=== PATIENT | female | born 1925 | race Caucasian/White ===

== ENCOUNTER 2017-03-05 15:17 | Inpatient (IN) | payer OTHER, MEDICARE ==
[2017-03-05 16:50] VITALS: BMI 31.2
[2017-03-05 17:39] LABS: BASOPHIL 0.6 % (0-2.0); EOSINOPHIL 0.4 % (0-4.5); MCH 28.4 pg (25.7-33.7); MCHC 31.7 g/dl (32.0-36.0); MEAN CELL VOLUME 89.5 fl (80-96); MEAN PLT VOLUME 8.4 fl (7.5-11.1); NEUTROPHILS 87.2 % (42.8-82.8); PLATELET COUNT 223 K/MM3 (134-434); RDW 14.3 % (11.6-15.6); WHITE BLOOD COUNT 15.8 K/mm3 (4.0-10.0)
[2017-03-05] MEDS: SODIUM CHLORIDE 1,000 ML IV SCH (17:46)
[2017-03-05 18:06] LABS: INR 1.03 (0.82-1.09); PROTHROMBIN TIME (PATIENT) 11.3 SEC (9.98-11.88)
[2017-03-05 18:20] LABS: ALBUMIN 3.7 g/dl (3.4-5.0); ANION GAP 9 (8-16); BILIRUBIN,TOTAL 0.3 mg/dL (0.2-1.0); CALCIUM 9.3 mg/dL (8.5-10.1); CO2 27 mmol/L (21-32); CREATININE 1.3 mg/dL (0.55-1.02); GLUCOSE,RANDOM 144 mg/dL (74-106); SGOT/AST 15 U/L (15-37); SGPT/ALT 13 U/L (12-78); TOT PROT 7.5 g/dl (6.4-8.2)
[2017-03-05 18:22] LABS: ALK PHOS 116 U/L (45-117); TROPONIN I < 0.02 ng/ml (0.00-0.05)
--- NOTE | 2017-03-05 20:02 | PDOC ---
History of Present Illness - History of Present Illness Initial Comments: 03/05/17 20:49 Patient is an 89 year old female with significant medical hx of dementia, CVA ( 6 years ago), HTN, HLD, and GERD brought in to the ED by son s/p fall. Three months ago the patient was admitted to [facility] for physical therapy and UTI. Today the patient was discharged from the correction and fell twice. The first time the patient was walking up the stairs into the house, when her knees buckled and she fell forward, scraping both of her shins on the stone steps. The patient did not hit her head or lose consciousness. The second time the patient was walking back from the bathroom when her legs collapsed and her son caught her in a wheelchair. He states that once she landed in the chair, she temporarily lost consciousness. Denies any head trauma. The patient uses a walker to ambulate. She is a poor historian. Denies nausea, vomiting, diarrhea, shortness of breath, chest pain, lightheadedness, or dizziness. Allergies: NKDA. PCP: Bola Chadwick MD <Karla Fermin - Last Filed: 03/05/17 21:04> <Melissa Thacker - Last Filed: 03/06/17 03:29> - General Chief Complaint: Syncope/Near Syncope Stated Complaint: Syncope/Near Syncope Past History <Karla Fermin - Last Filed: 03/05/17 21:04> - Past Medical History CVA: Yes (2009) COPD: Yes Dementia: Yes HTN: Yes Hypercholesterolemia: Yes - Immunization History Immunization Up to Date: Yes - Psycho/Social/Smoking Cessation Hx Suicidal Ideation: No Smoking History: Former smoker Have you smoked in the past 12 months: No Information on smoking cessation initiated: No Hx Alcohol Use: No Drug/Substance Use Hx: Yes Substance Use Type: None Hx Substance Use Treatment: No <Melissa Thacker - Last Filed: 03/06/17 03:29> - Past Medical History Allergies/Adverse Reactions: Allergies Allergy/AdvReac Type Severity Reaction Status Date / Time No Known Allergies Allergy Verified 03/05/17 16:06 Home Medications: Ambulatory Orders Escitalopram Oxalate [Lexapro -] 20 mg PO DAILY 10/26/15 Lovastatin 10 mg PO DAILY 10/26/15 Cholecalciferol (Vitamin D3) [D3-2000] 2,000 unit PO DAILY 11/07/15 Pantoprazole Sodium [Protonix] 40 mg PO DAILY 12/28/15 Amlodipine Besylate [Norvasc -] 2.5 mg PO DAILY tablet 01/02/16 Calcium (Oyster Shell) [Os-Dieter 500MG -] 500 mg PO DAILY #30 tablet 01/02/16 Lisinopril [Prinivil] 5 mg PO DAILY tablet 01/02/16 Aspirin Coated [Ecotrin -] 81 mg PO DAILY 12/23/16 Carbidopa/Levodopa 25/100 [Sinemet 25/100 -] 1 each PO TID 03/05/17 Review of Systems - Review of Systems Comments:: 03/05/17 20:50 CONSTITUTIONAL: Absent: fever, chills, diaphoresis, generalized weakness, malaise, loss of appetite HEENT: Absent: rhinorrhea, nasal congestion, throat pain, throat swelling, difficulty swallowing, mouth swelling, ear pain, eye pain, visual changes CARDIOVASCULAR: Present: syncope Absent: chest pain, palpitations, irregular heart rate, lightheadedness, peripheral edema RESPIRATORY: Absent: cough, shortness of breath, dyspnea with exertion, orthopnea, wheezing, stridor, hemoptysis GASTROINTESTINAL: Absent: abdominal pain, abdominal distension, nausea, vomiting, diarrhea, constipation, melena, hematochezia GENITOURINARY: Absent: dysuria, frequency, urgency, hesitancy, hematuria, flank pain, genital pain MUSCULOSKELETAL: Absent: myalgia, arthralgia, joint swelling SKIN: Present: españa abrasions Absent: rash, itching, pallor HEMATOLOGIC/IMMUNOLOGIC: Absent: easy bleeding, easy bruising, lymphadenopathy, frequent infections ENDOCRINE: Absent: unexplained weight gain, unexplained weight loss, heat intolerance, cold intolerance NEUROLOGIC: Absent: headache, focal weakness or paresthesia, dizziness, unsteady gait, seizure, mental status changes, bladder or bowel incontinence. PSYCHIATRIC: Absent: anxiety, depression, suicidal or homicidal ideation, hallucinations <Karla Fermin - Last Filed: 03/05/17 21:04> *Physical Exam - Vital Signs Last Vital Signs Temp Pulse Resp BP Pulse Ox 97.9 F 79 17 131/49 98 03/05/17 15:45 03/05/17 15:45 03/05/17 15:45 03/05/17 15:45 03/05/17 15:45 - Physical Exam Comments: 03/05/17 20:52 GENERAL: Well developed, well nourished. Awake and alert. No acute distress. HEENT: Normocephalic, atraumatic. PERRLA, EOMI. No conjunctival pallor. Sclera are non- icteric. Moist mucous membranes. Oropharynx is clear. NECK: Supple. Full ROM. No JVD. Carotid pulses 2+ and symmetric, without bruits. No thyromegaly. No lymphadenopathy. CARDIOVASCULAR: Regular rate and rhythm. No murmurs, rubs, or gallops. Distal pulses are 2+ and symmetric. PULMONARY: No evidence of respiratory distress. Lungs clear to auscultation bilaterally. No wheezing, rales or rhonchi. ABDOMINAL: Protuberant. Soft. Non-tender. Non-distended. No rebound or guarding. No organomegaly. Normoactive bowel sounds. MUSCULOSKELETAL: Normal range of motion at all joints. No hip tenderness. No bony deformities or tenderness. No CVA tenderness. EXTREMITIES: Scattered bruising to the lower extremities bilaterally. No cyanosis. No clubbing. No edema. No calf tenderness. SKIN: Extensive avulsive superficial abrasions to the bilateral shins measuring 10 cm. Warm and dry. Normal capillary refill. No rashes. No jaundice. NEUROLOGICAL: Alert, awake, poor historian. A&O x1 (baseline). Follows commands. Moving all extremities. Able to lift legs against gravity. Cranial nerves 2-12 intact. Normal speech. No ataxia. PSYCHIATRIC: Cooperative. Good eye contact. Appropriate mood and affect. <Karla Fermin - Last Filed: 03/05/17 21:04> - Vital Signs Last Vital Signs Temp Pulse Resp BP Pulse Ox 97.9 F 79 17 131/49 98 03/05/17 15:45 03/05/17 15:45 03/05/17 15:45 03/05/17 15:45 03/05/17 15:45 <Melissa Thacker - Last Filed: 03/06/17 03:29> ED Treatment Course - LABORATORY CBC & Chemistry Diagram: 03/05/17 17:30 03/05/17 17:30 - ADDITIONAL ORDERS Additional order review: Laboratory Results 03/05/17 03/05/17 03/05/17 17:30 17:30 17:30 INR 1.03 Sodium 140 Potassium 4.6 Chloride 104 Carbon Dioxide 27 Anion Gap 9 BUN 25 H Creatinine 1.3 H Creat Clearance w eGFR 38.57 Random Glucose 144 H D Calcium 9.3 Total Bilirubin 0.3 AST 15 ALT 13 Alkaline Phosphatase 116 D Creatine Kinase 114 Troponin I < 0.02 Total Protein 7.5 D Albumin 3.7 Blood Type O NEGATIVE Antibody Screen Negative 03/05/17 17:30 RBC 4.64 MCV 89.5 MCHC 31.7 L RDW 14.3 MPV 8.4 Neutrophils % 87.2 H D Lymphocytes % 6.7 L D Monocytes % 5.1 Eosinophils % 0.4 D Basophils % 0.6 - RADIOLOGY Radiograph Interpretation: 03/05/17 21:04 Chest X-Ray Impression: No acute disease. Reported By: Shashank Everett MD Head CT Impression: No evidence of acute intracranial pathology or significant change. Reported By: Shashank Everett MD <Karla Fermin - Last Filed: 03/05/17 21:04> - LABORATORY CBC & Chemistry Diagram: 03/05/17 17:30 03/05/17 17:30 - ADDITIONAL ORDERS Additional order review: Laboratory Results 03/05/17 03/05/17 03/05/17 17:30 17:30 17:30 INR 1.03 Sodium 140 Potassium 4.6 Chloride 104 Carbon Dioxide 27 Anion Gap 9 BUN 25 H Creatinine 1.3 H Creat Clearance w eGFR 38.57 Random Glucose 144 H D Calcium 9.3 Total Bilirubin 0.3 AST 15 ALT 13 Alkaline Phosphatase 116 D Creatine Kinase 114 Troponin I < 0.02 Total Protein 7.5 D Albumin 3.7 Blood Type O NEGATIVE Antibody Screen Negative 03/05/17 17:30 RBC 4.64 MCV 89.5 MCHC 31.7 L RDW 14.3 MPV 8.4 Neutrophils % 87.2 H D Lymphocytes % 6.7 L D Monocytes % 5.1 Eosinophils % 0.4 D Basophils % 0.6 - RADIOLOGY Radiology Studies Ordered: Category Date Time Status HEAD CT (STROKE) [CT] Stat CT Scan 03/05/17 18:00 Completed CHEST X-RAY PORTABLE* [RAD] Stat Radiology 03/05/17 17:38 Completed <Melissa Thacker - Last Filed: 03/06/17 03:29> Medical Decision Making - Medical Decision Making 03/05/17 22:01 89-year-old female fell while walking up the front steps of her home -she fell onto her knees,legs and sustained a significant 8-10 cm abrasion to both shins -about 90 minutes later ,this pt went to the bathroom and fell again -pt had been in a correction for rehab after a prior UTI and fall about 3 months ago. she was just discharged today -pt has dementia, at baseline she answers simple questions but she does not know her age or what month it is. She feeds herself and walks with assistance but today she was weak -urine is cloudy ,she has a leukocytosis ,her cxr is negative for infiltrates, she is mildly dehydrated w dry mucous membranes -she had no gross neuro deficits from her baseline stasis according to family, she she can move all her extremities despite the wounds on her shins, her lungs cta b/l, [id number],abd soft,nontender ct scan head -no acute intracranial pathology negative cardiac enzyme IMP-fall,UTI,skin abrasions 03/06/17 03:29 <Melissa Thacker - Last Filed: 03/06/17 03:29> *DC/Admit/Observation/Transfer - Attestations Scribe Attestion: 03/05/17 21:03 Documentation prepared by Karla Fermin, acting as medical laboratory specialist for Melissa Thacker MD. <Karla Fermin - Last Filed: 03/05/17 21:04> - Discharge Dispostion Admit: Yes <Melissa Thacker - Last Filed: 03/06/17 03:29> Diagnosis at time of Disposition: Trauma Dementia Qualifiers: Dementia type: unspecified type Dementia behavioral disturbance: without behavioral disturbance Qualified Code(s): F03.90 - Unspecified dementia without behavioral disturbance Abrasion of lower extremity Qualifiers: Encounter type: initial encounter Laterality: left Qualified Code(s): S80.812A - Abrasion, left lower leg, initial encounter UTI (urinary tract infection) Qualifiers: Urinary tract infection type: site unspecified Hematuria presence: without hematuria Qualified Code(s): N39.0 - Urinary tract infection, site not specified - Referrals
[2017-03-05] MEDS ORDERED: LEVOFLOXACIN 500 MG IVPB 100 ML IVPB ONE ×2 (21:58→22:12)
[2017-03-05 22:22] LABS: URINE APPEARANCE CLOUDY; URINE BILIRUBIN NEGATIVE (NEGATIVE); URINE BLOOD 1+ (NEGATIVE); URINE COLOR YELLOW; URINE GLUCOSE (UA) NEGATIVE (NEGATIVE); URINE KETONE NEGATIVE (NEGATIVE); URINE NITRITE POSITIVE (NEGATIVE); URINE PROTEIN NEGATIVE (NEGATIVE); URINE UROBILINOGEN NEGATIVE E.U./dl (0.2-1.0)
[2017-03-05 22:23] LABS: URINE LEUK ESTERASE 3+ (NEGATIVE)
[2017-03-05 22:26] LABS: URINE BACTERIA RARE /hpf (NONE SEEN); URINE MUCUS RARE; URINE RBC 40 /hpf (0-3); URINE WBC 552 /hpf (3-5)
[2017-03-06] MEDS: RANITIDINE HCL 150 MG TABLET (FP) PO SCH ×2 (09:51→21:47)
[2017-03-06] MEDS: ESCITALOPRAM OXALATE 10 MG TABLET (FP) PO SCH (09:51)
[2017-03-06] MEDS: ASPIRIN COATED 81 MG TABLET.EC PO SCH (09:51)
[2017-03-06] MEDS: LEVOFLOXACIN 250 MG IVPB 50 ML IVPB SCH (09:51)
[2017-03-06] MEDS: HEPARIN NA (PORCINE) 5,000 UNITS/ML 1ML VIAL SQ SCH ×2 (09:51→21:47)
--- NOTE | 2017-03-06 12:40 | EKG ---
Test Reason : Blood Pressure : / mmHG Vent. Rate : 076 BPM Atrial Rate : 076 BPM P-R Int : 188 ms QRS Dur : 078 ms QT Int : 398 ms P-R-T Axes : 061 -14 009 degrees QTc Int : 447 ms NORMAL SINUS RHYTHM LOW VOLTAGE QRS CANNOT RULE OUT ANTEROSEPTAL INFARCT (CITED ON OR BEFORE 17-DEC-2009) ABNORMAL ECG WHEN COMPARED WITH ECG OF 19-DEC-2016 13:44, NONSPECIFIC T WAVE ABNORMALITY NO LONGER EVIDENT IN ANTEROLATERAL LEADS QT HAS LENGTHENED Confirmed by EDITH CHAVES, DI ([id number]) on 03/06/2017 12:39:48 PM Referred By: Confirmed By:DI SHARMA MD
[2017-03-06] MEDS: CARBIDOPA/LEVODOPA 25/100 TABLET (FP) PO SCH ×2 (13:21→21:47)
--- NOTE | 2017-03-06 13:59 | HP ---
Admitting History and Physical - Primary Care Physician PCP: Bola Chadwick - Admission Chief Complaint: BIBA after collapsing at home History of Present Illness: Patient is an 89 year old chronically ill female with significant medical hx of dementia, old CVA (6 years ago), HTN, HLD, and gait dysf who was brought in to the ED by son s/p fall at home on the same day she was released from SNF ( [facility] in the ) . Three months ago the patient was admitted to [facility] for physical therapy from [facility]. Today the patient was discharged from the [facility] and fell twice, once when going up steps ( while being assisted). Her knees buckled and she fell forward, scraping both of her shins on the stone steps. The patient did not hit her head or lose consciousness. The second time the patient was walking back from the bathroom when her legs weakneded and her son caught her in a wheelchair. He states that once she landed in the chair, she temporarily lost consciousness. Denies any head trauma. The patient uses a walker to ambulate with assist while in the SNF. She has no complaints at the time of this exam History Source: Family Member, Medical Record Limitations to Obtaining History: Dementia - Past Medical History SPRIGGER: Yes: CVA (5-6 years ago), Dementia, Parkinson's Cardiovascular: Yes: HTN, Hyperlipdemia Gastrointestinal: Yes: GERD, Other (Esophageal narrowing) Renal/: Yes: UTI ...: No Psych: Yes: Depression Musculoskeletal: Yes: Other (Gait disorder) - Smoking History Smoking history: Former smoker Have you smoked in the past 12 months: No - Alcohol/Substance Use Hx Alcohol Use: No History of Substance Use: reports: None - Social History ADL: Family Assistance History of Recent Travel: No Home Medications - Allergies Allergies/Adverse Reactions: Allergies Allergy/AdvReac Type Severity Reaction Status Date / Time No Known Allergies Allergy Verified 03/05/17 16:06 - Home Medications Home Medications: Ambulatory Orders Escitalopram Oxalate [Lexapro -] 20 mg PO DAILY 10/26/15 Lovastatin 10 mg PO DAILY 10/26/15 Cholecalciferol (Vitamin D3) [D3-2000] 2,000 unit PO DAILY 11/07/15 Pantoprazole Sodium [Protonix] 40 mg PO DAILY 12/28/15 Amlodipine Besylate [Norvasc -] 2.5 mg PO DAILY tablet 01/02/16 Calcium (Oyster Shell) [Os-Dieter 500MG -] 500 mg PO DAILY #30 tablet 01/02/16 Lisinopril [Prinivil] 5 mg PO DAILY tablet 01/02/16 Aspirin Coated [Ecotrin -] 81 mg PO DAILY 12/23/16 Carbidopa/Levodopa 25/100 [Sinemet 25/100 -] 1 each PO TID 03/05/17 Family Disease History - Family Disease History Family History: Unremarkable Review of Systems Findings/Remarks: unable to fully obtain 2nd dementia however she denies being in any distress Physical Examination Vital Signs: Vital Signs Temperature 97.9 F 03/06/17 10:00 Pulse Rate 83 03/06/17 10:00 Respiratory Rate 20 03/06/17 10:00 Blood Pressure 144/60 03/06/17 10:00 O2 Sat by Pulse Oximetry (%) 95 03/05/17 22:00 Findings/Remarks: skin--abrasion/avulsed skin the pre tibial areas of both legs head--NC eyes--midline; eomi; conj clear ears--NL hearing oral--poor denttion; no gross mucosal lesions appreciated neck--supple, no masses, no bruits heart--RR lungs--grossly clear breasts--no masses, nodes, discharge abd--obese, soft, NT ND ext--no CCE; Pulses faint but noted bilat LE; degen changes neuro--awake, alert but apathetic demeanor; cognitvely impoverished; limited judgment & insight; memory impaired; good eye contact; follows commands; mood neutral, calm, moves all E's purposefully when asked; no gross tremors or rigidity; no gross paresis appreciated; unable to stand on her own Labs: CBCD WBC 15.8 K/mm3 (4.0-10.0) H D 03/05/17 17:30 RBC 4.64 M/mm3 (3.60-5.2) 03/05/17 17:30 Hgb 13.2 GM/dL (10.7-15.3) 03/05/17 17:30 Hct 41.5 % (32.4-45.2) 03/05/17 17:30 MCV 89.5 fl (80-96) 03/05/17 17:30 MCHC 31.7 g/dl (32.0-36.0) L 03/05/17 17:30 RDW 14.3 % (11.6-15.6) 03/05/17 17:30 Plt Count 223 K/MM3 (134-434) D 03/05/17 17:30 MPV 8.4 fl (7.5-11.1) 03/05/17 17:30 CMP Sodium 140 mmol/L (136-145) 03/05/17 17:30 Potassium 4.6 mmol/L (3.5-5.1) 03/05/17 17:30 Chloride 104 mmol/L (98-107) 03/05/17 17:30 Carbon Dioxide 27 mmol/L (21-32) 03/05/17 17:30 Anion Gap 9 (8-16) 03/05/17 17:30 BUN 25 mg/dL (7-18) H 03/05/17 17:30 Creatinine 1.3 mg/dL (0.55-1.02) H 03/05/17 17:30 Creat Clearance w eGFR 38.57 (>60) 03/05/17 17:30 Random Glucose 144 mg/dL (74-106) H D 03/05/17 17:30 Calcium 9.3 mg/dL (8.5-10.1) 03/05/17 17:30 Total Bilirubin 0.3 mg/dL (0.2-1.0) 03/05/17 17:30 AST 15 U/L (15-37) 03/05/17 17:30 ALT 13 U/L (12-78) 03/05/17 17:30 Alkaline Phosphatase 116 U/L (45-117) D 03/05/17 17:30 Total Protein 7.5 g/dl (6.4-8.2) D 03/05/17 17:30 Albumin 3.7 g/dl (3.4-5.0) 03/05/17 17:30 CARDIAC ENZYMES Creatine Kinase 114 IU/L (26-192) 03/05/17 17:30 Troponin I < 0.02 ng/ml (0.00-0.05) 03/05/17 17:30 Urine Test Results Urine Color Yellow 03/05/17 19:40 Urine Appearance Cloudy 03/05/17 19:40 Urine pH 5.0 (5.0-8.0) 03/05/17 19:40 Ur Specific [place] 1.010 (1.005-1.025) 03/05/17 19:40 Urine Protein Negative (NEGATIVE) 03/05/17 19:40 Urine Glucose (UA) Negative (NEGATIVE) 03/05/17 19:40 Urine Ketones Negative (NEGATIVE) 03/05/17 19:40 Urine Blood 1+ (NEGATIVE) H 03/05/17 19:40 Urine Nitrite Positive (NEGATIVE) 03/05/17 19:40 Urine Bilirubin Negative (NEGATIVE) 03/05/17 19:40 Ur Leukocyte Esterase 3+ (NEGATIVE) H D 03/05/17 19:40 Urine RBC 40 /hpf (0-3) 03/05/17 19:40 Urine WBC 552 /hpf (3-5) 03/05/17 19:40 Urine Bacteria Rare /hpf (NONE SEEN) 03/05/17 19:40 Urine Mucus Rare 03/05/17 19:40 Imaging - Results X-ray: Report Reviewed Cat Scan: Report Reviewed EKG: Report Reviewed Problem List - Problems (1) Syncope and collapse Assessment/Plan: underlying cause as of yet not clear. She seems to have been on verge of collapse as she was climbing steps; and again collapsed when rising from toilet. Now back to baseline without apparent neuro changes. Possibilities include; Vaso-vagal; low BP; state of infection (UTI); TIA; Low glucose. PLAN: check carotid duplex; echo; BGMs; cortisol level; Rx Abs for presumed UTI; PT eval; may need neuro eval Code(s): R55 - SYNCOPE AND COLLAPSE (2) UTI (urinary tract infection) Assessment/Plan: based upon UA; culture pend. Rx Abs Code(s): N39.0 - URINARY TRACT INFECTION, SITE NOT SPECIFIED Qualifiers: Urinary tract infection type: site unspecified Hematuria presence: without hematuria Qualified Code(s): N39.0 - Urinary tract infection, site not specified (3) HTN (hypertension) Assessment/Plan: BP now WNL; will watch with/o BP meds for now Code(s): I10 - ESSENTIAL (PRIMARY) HYPERTENSION Qualifiers: Hypertension type: essential hypertension Qualified Code(s): I10 - Essential (primary) hypertension (4) Idiopathic normal pressure hydrocephalus Assessment/Plan: diagnosis uncertain as it was made many yrs ago; but never went for LP Code(s): G91.2 - (IDIOPATHIC) NORMAL PRESSURE HYDROCEPHALUS (5) Abrasion of lower extremity Assessment/Plan: superficial; apply topical agents & dressing Qualifiers: Encounter type: initial encounter Laterality: unspecified laterality Qualified Code(s): S80.819A - Abrasion, unspecified lower leg, initial encounter (6) Lipidemia Assessment/Plan: not new; will hold statin for now Code(s): E78.5 - HYPERLIPIDEMIA, UNSPECIFIED Qualifiers: Hyperlipidemia type: unspecified Qualified Code(s): E78.5 - Hyperlipidemia, unspecified (7) H/O: CVA (cerebrovascular accident) Assessment/Plan: Hx of ischemic infarct many yrs ago for which she got thrombolytic Tx; and no longer had any residual deficits Code(s): Z86.73 - PRSNL HX OF TIA (TIA), AND CEREB INFRC W/O RESID DEFICITS (8) Gait disturbance Assessment/Plan: longstanding; could be due to old CVA's and/or NPH Code(s): R26.9 - UNSPECIFIED ABNORMALITIES OF GAIT AND MOBILITY (9) Dementia Assessment/Plan: longstanding; multifactorial Code(s): F03.90 - UNSPECIFIED DEMENTIA WITHOUT BEHAVIORAL DISTURBANCE Qualifiers: Dementia type: unspecified type Dementia behavioral disturbance: without behavioral disturbance Qualified Code(s): F03.90 - Unspecified dementia without behavioral disturbance (10) History of fall Assessment/Plan: has had falls in the past 2nd gait dysfunction; needs constant assistance. Code(s): Z91.81 - HISTORY OF FALLING (11) Leukocytosis Assessment/Plan: likely 2nd infected state; will Rx Abs, and await culture Code(s): D72.829 - ELEVATED WHITE BLOOD CELL COUNT, UNSPECIFIED Qualifiers: Leukocytosis type: unspecified Qualified Code(s): D72.829 - Elevated white blood cell count, unspecified Assessment/Plan 89 y/o F chronically ill; unstable, and mobility impaired who sustained LE injury 2nd contusion from aborted fall and who "collapsed" into a brief unconscious state; who may be in the midst of a urinary infection ~~~~~~~~~~~~~~~~~~~~~~~~~~~~~~ Dr Commentucci........1 Hr
[2017-03-06] MEDS: MUPIROCIN 2% TOPICAL OINTMENT 22 GM TUBE TP SCH (18:12)
[2017-03-06] MEDS: SODIUM CHLORIDE 1,000 ML IV SCH (18:12)
[2017-03-07] MEDS: CARBIDOPA/LEVODOPA 25/100 TABLET (FP) PO SCH ×3 (06:03→22:27)
[2017-03-07 07:50] LABS: MCH 29.1 pg (25.7-33.7); MCHC 32.6 g/dl (32.0-36.0); MEAN CELL VOLUME 89.1 fl (80-96); MEAN PLT VOLUME 8.7 fl (7.5-11.1); PLATELET COUNT 185 K/MM3 (134-434); RDW 14.2 % (11.6-15.6); WHITE BLOOD COUNT 9.4 K/mm3 (4.0-10.0)
[2017-03-07 08:16] LABS: CALCIUM 8.8 mg/dL (8.5-10.1)
[2017-03-07 08:32] LABS: COCKROFT - GAULT 36.4055; CREATININE 1.2 mg/dL (0.55-1.02); THYROID STIMULATING HORMONE 2.65 uIU/ml (0.358-3.74)
[2017-03-07] MEDS ORDERED: PT OWN MED DRAWER 7, Y5N ONE (09:05)
[2017-03-07] MEDS: ESCITALOPRAM OXALATE 10 MG TABLET (FP) PO SCH (09:07)
[2017-03-07] MEDS: RANITIDINE HCL 150 MG TABLET (FP) PO SCH ×2 (09:07→22:27)
[2017-03-07] MEDS: MUPIROCIN 2% TOPICAL OINTMENT 22 GM TUBE TP SCH (09:07)
[2017-03-07] MEDS: HEPARIN NA (PORCINE) 5,000 UNITS/ML 1ML VIAL SQ SCH ×2 (09:07→22:27)
[2017-03-07] MEDS: ASPIRIN COATED 81 MG TABLET.EC PO SCH (09:07)
[2017-03-07] MEDS: LEVOFLOXACIN 250 MG IVPB 50 ML IVPB SCH (09:07)
--- NOTE | 2017-03-07 14:07 | PN ---
Progress Note (short form) - Note Progress Note: Current Medications Aspirin (Ecotrin -) 81 mg PO DAILY [facility] Last Admin: 03/07/17 09:07 Dose: 81 mg Carbidopa/Levodopa (Sinemet 25/100 -) 1 each PO TID [facility] Last Admin: 03/07/17 13:48 Dose: 1 each Escitalopram Oxalate (Lexapro -) 10 mg PO DAILY [facility] Last Admin: 03/07/17 09:07 Dose: 10 mg Heparin Sodium (Porcine) (Heparin -) 5,000 unit SQ BID [facility] Last Admin: 03/07/17 09:07 Dose: 5,000 unit Sodium Chloride (Normal Saline -) 1,000 mls @ 42 mls/hr IV ASDIR [facility] Last Admin: 03/06/17 18:12 Dose: Not Given Levofloxacin (Levaquin 250 Mg Premixed Ivpb -) 50 mls @ 50 mls/hr IVPB DAILY [facility] Last Admin: 03/07/17 09:07 Dose: 50 mls/hr Mupirocin (Bactroban 2% Ointment -) 1 applic TP DAILY [facility] Last Admin: 03/07/17 09:07 Dose: 1 applic Ranitidine HCl (Zantac -) 150 mg PO BID [facility] Last Admin: 03/07/17 09:07 Dose: 150 mg Laboratory Results - last 24 hr 03/07/17 03/07/17 03/07/17 05:33 06:30 06:30 WBC 9.4 D RBC 3.96 Hgb 11.5 D Hct 35.3 MCV 89.1 MCHC 32.6 RDW 14.2 Plt Count 185 MPV 8.7 Sodium 143 Potassium 4.3 Chloride 109 H Carbon Dioxide 27 Anion Gap 7 L BUN 28 H Creatinine 1.2 H POC Glucometer 88 Random Glucose 90 D Calcium 8.8 TSH 2.65 03/07/17 11:19 WBC RBC Hgb Hct MCV MCHC RDW Plt Count MPV Sodium Potassium Chloride Carbon Dioxide Anion Gap BUN Creatinine POC Glucometer 84 Random Glucose Calcium TSH Vital Signs Temperature 98.4 F 03/07/17 10:00 Pulse Rate 86 03/07/17 10:00 Respiratory Rate 20 03/07/17 10:00 Blood Pressure 151/81 03/07/17 10:00 O2 Sat by Pulse Oximetry (%) 94 L 03/07/17 09:00 CC; none ````````````` skin--abrasion LE's eyes--midline heart--RR abd--benign ext--trace edema neuro--awake; apathetic; good eye contact, able to follow some commands; very limited ability to walk (w/assist); cognition impoverished ```````````````````````````` Summ > near-syncope---as described in Hx; Carotid duplex unremarkable; await echo > gait dysf--underlying DIAGNOSTIC MEDICAL SONOGRAPHER dysfunction; findins as per PT > UTI--dual orgs; await full ID > Htn--w/ CKD (mild); SBP a bit high; will Rx low dose Losartan 25mg to start > dementia--global; advanced ~~~~~~~~~~~~~~~~~~ Dr Chadwick Problem List - Problems (1) Syncope and collapse Code(s): R55 - SYNCOPE AND COLLAPSE (2) UTI (urinary tract infection) Code(s): N39.0 - URINARY TRACT INFECTION, SITE NOT SPECIFIED Qualifiers: Urinary tract infection type: site unspecified Hematuria presence: without hematuria Qualified Code(s): N39.0 - Urinary tract infection, site not specified (3) HTN (hypertension) Code(s): I10 - ESSENTIAL (PRIMARY) HYPERTENSION Qualifiers: Hypertension type: essential hypertension Qualified Code(s): I10 - Essential (primary) hypertension (4) Idiopathic normal pressure hydrocephalus Code(s): G91.2 - (IDIOPATHIC) NORMAL PRESSURE HYDROCEPHALUS (5) Abrasion of lower extremity Qualifiers: Encounter type: initial encounter Laterality: unspecified laterality Qualified Code(s): S80.819A - Abrasion, unspecified lower leg, initial encounter (6) Lipidemia Code(s): E78.5 - HYPERLIPIDEMIA, UNSPECIFIED Qualifiers: Hyperlipidemia type: unspecified Qualified Code(s): E78.5 - Hyperlipidemia, unspecified (7) H/O: CVA (cerebrovascular accident) Code(s): Z86.73 - PRSNL HX OF TIA (TIA), AND CEREB INFRC W/O RESID DEFICITS (8) Gait disturbance Code(s): R26.9 - UNSPECIFIED ABNORMALITIES OF GAIT AND MOBILITY (9) Dementia Code(s): F03.90 - UNSPECIFIED DEMENTIA WITHOUT BEHAVIORAL DISTURBANCE Qualifiers: Dementia type: unspecified type Dementia behavioral disturbance: without behavioral disturbance Qualified Code(s): F03.90 - Unspecified dementia without behavioral disturbance (10) History of fall Code(s): Z91.81 - HISTORY OF FALLING (11) Leukocytosis Code(s): D72.829 - ELEVATED WHITE BLOOD CELL COUNT, UNSPECIFIED Qualifiers: Leukocytosis type: unspecified Qualified Code(s): D72.829 - Elevated white blood cell count, unspecified
[2017-03-07] MEDS: LOSARTAN POTASSIUM 25 MG TABLET PO SCH (14:28)
[2017-03-07] MEDS: SODIUM CHLORIDE 1,000 ML IV SCH (18:05)
[2017-03-08] MEDS: SODIUM CHLORIDE 1,000 ML IV SCH ×2 (06:19→23:04)
[2017-03-08] MEDS: CARBIDOPA/LEVODOPA 25/100 TABLET (FP) PO SCH ×3 (06:22→23:09)
[2017-03-08 07:55] LABS: CALCIUM 8.7 mg/dL (8.5-10.1); COCKROFT - GAULT 39.7205; CREATININE 1.1 mg/dL (0.55-1.02)
[2017-03-08] MEDS: RANITIDINE HCL 150 MG TABLET (FP) PO SCH ×2 (09:28→23:08)
[2017-03-08] MEDS: HEPARIN NA (PORCINE) 5,000 UNITS/ML 1ML VIAL SQ SCH ×2 (09:28→23:08)
[2017-03-08] MEDS: LOSARTAN POTASSIUM 25 MG TABLET PO SCH (09:28)
[2017-03-08] MEDS: MUPIROCIN 2% TOPICAL OINTMENT 22 GM TUBE TP SCH (09:28)
[2017-03-08] MEDS: ASPIRIN COATED 81 MG TABLET.EC PO SCH (09:28)
[2017-03-08] MEDS: LEVOFLOXACIN 250 MG IVPB 50 ML IVPB SCH (09:28)
[2017-03-08] MEDS: ESCITALOPRAM OXALATE 10 MG TABLET (FP) PO SCH (09:28)
--- NOTE | 2017-03-08 16:44 | PN ---
Progress Note (short form) - Note Progress Note: Current Medications Aspirin (Ecotrin -) 81 mg PO DAILY [facility] Last Admin: 03/08/17 09:28 Dose: 81 mg Carbidopa/Levodopa (Sinemet 25/100 -) 1 each PO TID [facility] Last Admin: 03/08/17 13:15 Dose: 1 each Cosyntropin (Cortrosyn -) 0.25 mg IM ONCE ONE Stop: 03/09/17 05:01 Escitalopram Oxalate (Lexapro -) 10 mg PO DAILY [facility] Last Admin: 03/08/17 09:28 Dose: 10 mg Heparin Sodium (Porcine) (Heparin -) 5,000 unit SQ BID [facility] Last Admin: 03/08/17 09:28 Dose: 5,000 unit Sodium Chloride (Normal Saline -) 1,000 mls @ 42 mls/hr IV ASDIR [facility] Last Admin: 03/08/17 06:19 Dose: 42 mls/hr Levofloxacin (Levaquin 250 Mg Premixed Ivpb -) 50 mls @ 50 mls/hr IVPB DAILY [facility] Last Admin: 03/08/17 09:28 Dose: 50 mls/hr Losartan Potassium (Cozaar -) 25 mg PO DAILY [facility] Last Admin: 03/08/17 09:28 Dose: 25 mg Mupirocin (Bactroban 2% Ointment -) 1 applic TP DAILY [facility] Last Admin: 03/08/17 09:28 Dose: 1 applic Ranitidine HCl (Zantac -) 150 mg PO BID [facility] Last Admin: 03/08/17 09:28 Dose: 150 mg Laboratory Results - last 24 hr 03/07/17 03/08/17 03/08/17 06:30 05:35 05:35 Sodium 142 Potassium 4.3 Chloride 107 Carbon Dioxide 24 Anion Gap 11 BUN 26 H Creatinine 1.1 H POC Glucometer Random Glucose 84 Calcium 8.7 Vitamin B12 512 Cortisol AM Sample 8.8 03/08/17 07:16 Sodium Potassium Chloride Carbon Dioxide Anion Gap BUN Creatinine POC Glucometer 90 Random Glucose Calcium Vitamin B12 Cortisol AM Sample Vital Signs Temperature 97.9 F 03/08/17 14:15 Pulse Rate 93 H 03/08/17 14:15 Respiratory Rate 16 03/08/17 14:15 Blood Pressure 138/65 03/08/17 14:15 O2 Sat by Pulse Oximetry (%) 94 L 03/08/17 09:00 CC; none ````````````` skin--abrasion LE's eyes--midline heart--RR abd--benign ext--trace edema neuro--awake; apathetic; good eye contact, able to follow some commands; very limited ability to walk (w/assist); cognition impoverished ```````````````````````````` Summ > near-syncope---as described in Hx; Carotid duplex unremarkable; echo unremarkable; syncope could be 2nd low BP combo of vaso-vagal & state of infection > gait dysf--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; findins as per PT > UTI--dual orgs; 1 org identified; the other is pending > Htn--w/ CKD (mild); SBP now okay > dementia--global; advanced; Cortisol level on low side of NL; will get Cortrysn stimulation test ~~~~~~~~~~~~~~~~~~ Dr Chadwick Problem List - Problems (1) Syncope and collapse Code(s): R55 - SYNCOPE AND COLLAPSE (2) UTI (urinary tract infection) Code(s): N39.0 - URINARY TRACT INFECTION, SITE NOT SPECIFIED Qualifiers: Urinary tract infection type: site unspecified Hematuria presence: without hematuria Qualified Code(s): N39.0 - Urinary tract infection, site not specified (3) HTN (hypertension) Code(s): I10 - ESSENTIAL (PRIMARY) HYPERTENSION Qualifiers: Hypertension type: essential hypertension Qualified Code(s): I10 - Essential (primary) hypertension (4) Idiopathic normal pressure hydrocephalus Code(s): G91.2 - (IDIOPATHIC) NORMAL PRESSURE HYDROCEPHALUS (5) Abrasion of lower extremity Qualifiers: Encounter type: initial encounter Laterality: unspecified laterality Qualified Code(s): S80.819A - Abrasion, unspecified lower leg, initial encounter (6) Lipidemia Code(s): E78.5 - HYPERLIPIDEMIA, UNSPECIFIED Qualifiers: Hyperlipidemia type: unspecified Qualified Code(s): E78.5 - Hyperlipidemia, unspecified (7) H/O: CVA (cerebrovascular accident) Code(s): Z86.73 - PRSNL HX OF TIA (TIA), AND CEREB INFRC W/O RESID DEFICITS (8) Gait disturbance Code(s): R26.9 - UNSPECIFIED ABNORMALITIES OF GAIT AND MOBILITY (9) Dementia Code(s): F03.90 - UNSPECIFIED DEMENTIA WITHOUT BEHAVIORAL DISTURBANCE Qualifiers: Dementia type: unspecified type Dementia behavioral disturbance: without behavioral disturbance Qualified Code(s): F03.90 - Unspecified dementia without behavioral disturbance (10) History of fall Code(s): Z91.81 - HISTORY OF FALLING (11) Leukocytosis Code(s): D72.829 - ELEVATED WHITE BLOOD CELL COUNT, UNSPECIFIED Qualifiers: Leukocytosis type: unspecified Qualified Code(s): D72.829 - Elevated white blood cell count, unspecified
[2017-03-09] MEDS ORDERED: PT OWN MED DRAWER 7, Y5N ONE (04:54)
[2017-03-09] MEDS ORDERED: COSYNTROPIN 0.25 MG VIAL IM ONE (05:00)
[2017-03-09] MEDS: CARBIDOPA/LEVODOPA 25/100 TABLET (FP) PO SCH ×3 (06:45→22:18)
[2017-03-09] MEDS: HEPARIN NA (PORCINE) 5,000 UNITS/ML 1ML VIAL SQ SCH ×2 (11:07→22:18)
[2017-03-09] MEDS: LEVOFLOXACIN 250 MG TABLET (FP) PO SCH (11:08)
[2017-03-09] MEDS: RANITIDINE HCL 150 MG TABLET (FP) PO SCH ×2 (11:08→22:18)
[2017-03-09] MEDS: ASPIRIN COATED 81 MG TABLET.EC PO SCH (11:08)
[2017-03-09] MEDS: LOSARTAN POTASSIUM 25 MG TABLET PO SCH (11:08)
[2017-03-09] MEDS: ESCITALOPRAM OXALATE 10 MG TABLET (FP) PO SCH (11:08)
[2017-03-09] MEDS: MUPIROCIN 2% TOPICAL OINTMENT 22 GM TUBE TP SCH (11:13)
[2017-03-09] MEDS: SODIUM CHLORIDE 1,000 ML IV SCH (13:34)
--- NOTE | 2017-03-09 13:40 | PN ---
Progress Note (short form) - Note Progress Note: Current Medications Aspirin (Ecotrin -) 81 mg PO DAILY [facility] Last Admin: 03/09/17 11:08 Dose: 81 mg Carbidopa/Levodopa (Sinemet 25/100 -) 1 each PO TID [facility] Last Admin: 03/09/17 13:34 Dose: 1 each Escitalopram Oxalate (Lexapro -) 10 mg PO DAILY [facility] Last Admin: 03/09/17 11:08 Dose: 10 mg Heparin Sodium (Porcine) (Heparin -) 5,000 unit SQ BID [facility] Last Admin: 03/09/17 11:07 Dose: 5,000 unit Sodium Chloride (Normal Saline -) 1,000 mls @ 42 mls/hr IV ASDIR [facility] Last Admin: 03/09/17 13:34 Dose: 42 mls/hr Levofloxacin (Levaquin -) 250 mg PO DAILY [facility] Last Admin: 03/09/17 11:08 Dose: 250 mg Losartan Potassium (Cozaar -) 25 mg PO DAILY [facility] Last Admin: 03/09/17 11:08 Dose: 25 mg Mupirocin (Bactroban 2% Ointment -) 1 applic TP DAILY [facility] Last Admin: 03/09/17 11:13 Dose: 1 applic Ranitidine HCl (Zantac -) 150 mg PO BID [facility] Last Admin: 03/09/17 11:08 Dose: 150 mg Laboratory Results - last 24 hr 03/08/17 03/09/17 17:13 08:43 POC Glucometer 106 88 Vital Signs Temperature 98.5 F 03/09/17 10:00 Pulse Rate 100 H 03/09/17 10:00 Respiratory Rate 18 03/09/17 10:00 Blood Pressure 150/57 03/09/17 10:00 O2 Sat by Pulse Oximetry (%) 94 L 03/08/17 21:00 CC; none ````````````` skin--abrasion LE's eyes--midline heart--RR abd--benign ext--trace edema neuro--awake; apathetic; good eye contact, able to follow some commands; very limited ability to walk (w/assist); cognition impoverished ```````````````````````````` Summ > near-syncope---as described in Hx; Carotid duplex unremarkable; echo unremarkable; syncope could be 2nd low BP combo of vaso-vagal & state of infection, now off her usual BP meds > 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 dysf--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; findins as per PT > UTI--2 orgs both Gm(-) sens to Levaquin > Htn--w/ CKD (mild); on ARB low dose > dementia--global; advanced; Cortisol level on low side of NL; will get Cortrysn stimulation test & f/u Cortisol ~~~~~~~~~~~~~~~~~~ Dr Chadwick Problem List - Problems (1) Syncope and collapse Code(s): R55 - SYNCOPE AND COLLAPSE (2) UTI (urinary tract infection) Code(s): N39.0 - URINARY TRACT INFECTION, SITE NOT SPECIFIED Qualifiers: Urinary tract infection type: site unspecified Hematuria presence: without hematuria Qualified Code(s): N39.0 - Urinary tract infection, site not specified (3) HTN (hypertension) Code(s): I10 - ESSENTIAL (PRIMARY) HYPERTENSION Qualifiers: Hypertension type: essential hypertension Qualified Code(s): I10 - Essential (primary) hypertension (4) Idiopathic normal pressure hydrocephalus Code(s): G91.2 - (IDIOPATHIC) NORMAL PRESSURE HYDROCEPHALUS (5) Abrasion of lower extremity Qualifiers: Encounter type: initial encounter Laterality: unspecified laterality Qualified Code(s): S80.819A - Abrasion, unspecified lower leg, initial encounter (6) Lipidemia Code(s): E78.5 - HYPERLIPIDEMIA, UNSPECIFIED Qualifiers: Hyperlipidemia type: unspecified Qualified Code(s): E78.5 - Hyperlipidemia, unspecified (7) H/O: CVA (cerebrovascular accident) Code(s): Z86.73 - PRSNL HX OF TIA (TIA), AND CEREB INFRC W/O RESID DEFICITS (8) Gait disturbance Code(s): R26.9 - UNSPECIFIED ABNORMALITIES OF GAIT AND MOBILITY (9) Dementia Code(s): F03.90 - UNSPECIFIED DEMENTIA WITHOUT BEHAVIORAL DISTURBANCE Qualifiers: Dementia type: unspecified type Dementia behavioral disturbance: without behavioral disturbance Qualified Code(s): F03.90 - Unspecified dementia without behavioral disturbance (10) History of fall Code(s): Z91.81 - HISTORY OF FALLING (11) Leukocytosis Code(s): D72.829 - ELEVATED WHITE BLOOD CELL COUNT, UNSPECIFIED Qualifiers: Leukocytosis type: unspecified Qualified Code(s): D72.829 - Elevated white blood cell count, unspecified
[2017-03-10] MEDS: CARBIDOPA/LEVODOPA 25/100 TABLET (FP) PO SCH ×3 (06:31→22:10)
[2017-03-10 08:10] LABS: CALCIUM 8.8 mg/dL (8.5-10.1); COCKROFT - GAULT 39.7205; CREATININE 1.1 mg/dL (0.55-1.02)
[2017-03-10] MEDS ORDERED: PT OWN MED DRAWER 7, Y5N ONE (11:02)
[2017-03-10] MEDS: HEPARIN NA (PORCINE) 5,000 UNITS/ML 1ML VIAL SQ SCH ×2 (11:04→22:10)
[2017-03-10] MEDS: MUPIROCIN 2% TOPICAL OINTMENT 22 GM TUBE TP SCH (11:05)
[2017-03-10] MEDS: ESCITALOPRAM OXALATE 10 MG TABLET (FP) PO SCH (11:05)
[2017-03-10] MEDS: RANITIDINE HCL 150 MG TABLET (FP) PO SCH ×2 (11:05→22:10)
[2017-03-10] MEDS: LEVOFLOXACIN 250 MG TABLET (FP) PO SCH (11:05)
[2017-03-10] MEDS: LOSARTAN POTASSIUM 25 MG TABLET PO SCH (11:05)
[2017-03-10] MEDS: ASPIRIN COATED 81 MG TABLET.EC PO SCH (11:05)
--- NOTE | 2017-03-10 13:00 | PN ---
Progress Note (short form) - Note Progress Note: Current Medications Aspirin (Ecotrin -) 81 mg PO DAILY [facility] Last Admin: 03/10/17 11:05 Dose: 81 mg Carbidopa/Levodopa (Sinemet 25/100 -) 1 each PO TID [facility] Last Admin: 03/10/17 06:31 Dose: 1 each Escitalopram Oxalate (Lexapro -) 10 mg PO DAILY [facility] Last Admin: 03/10/17 11:05 Dose: 10 mg Heparin Sodium (Porcine) (Heparin -) 5,000 unit SQ BID [facility] Last Admin: 03/10/17 11:04 Dose: 5,000 unit Levofloxacin (Levaquin -) 250 mg PO DAILY [facility] Last Admin: 03/10/17 11:05 Dose: 250 mg Losartan Potassium (Cozaar -) 25 mg PO DAILY [facility] Last Admin: 03/10/17 11:05 Dose: 25 mg Mupirocin (Bactroban 2% Ointment -) 1 applic TP DAILY [facility] Last Admin: 03/10/17 11:05 Dose: 1 applic Ranitidine HCl (Zantac -) 150 mg PO BID [facility] Last Admin: 03/10/17 11:05 Dose: 150 mg Laboratory Results - last 24 hr 03/09/17 03/09/17 03/10/17 06:00 17:02 06:09 Sodium Potassium Chloride Carbon Dioxide Anion Gap BUN Creatinine POC Glucometer 120 94 Random Glucose Calcium Cortisol AM Sample 22.5 03/10/17 07:10 Sodium 143 Potassium 4.2 Chloride 107 Carbon Dioxide 26 Anion Gap 10 BUN 23 H Creatinine 1.1 H POC Glucometer Random Glucose 92 Calcium 8.8 Cortisol AM Sample Vital Signs Temperature 98.1 F 03/10/17 10:00 Pulse Rate 80 03/10/17 10:00 Respiratory Rate 18 03/10/17 10:00 Blood Pressure 123/71 03/10/17 10:00 O2 Sat by Pulse Oximetry (%) 94 L 03/08/17 21:00 CC; none ````````````` skin--abrasion LE's eyes--midline heart--RR abd--benign ext--trace edema neuro--awake; apathetic; good eye contact, able to follow some commands; very limited ability to walk (w/assist); cognition impoverished, able to respond ```````````````````````````` Summ > near-syncope---as described in Hx; Carotid duplex unremarkable; echo unremarkable; syncope could be 2nd low BP combo of vaso-vagal & state of infection, now off her usual BP meds > 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; does not appear to be due to adrenal insuff as the Cortrysin reyna is negativ > UTI--2 orgs both Gm(-) sens to Levaquin; will cont as OP > Htn--w/ CKD (mild); BP okay on ARB low dose > dementia--global; advanced; Cortisol level on low side of NL; will get Cortrysn stimulation test & f/u Cortisol ~~~~~~~~~~~~~~~~~~ Dr Chadwick Problem List - Problems (1) Syncope and collapse Code(s): R55 - SYNCOPE AND COLLAPSE (2) UTI (urinary tract infection) Code(s): N39.0 - URINARY TRACT INFECTION, SITE NOT SPECIFIED Qualifiers: Urinary tract infection type: site unspecified Hematuria presence: without hematuria Qualified Code(s): N39.0 - Urinary tract infection, site not specified (3) HTN (hypertension) Code(s): I10 - ESSENTIAL (PRIMARY) HYPERTENSION Qualifiers: Hypertension type: essential hypertension Qualified Code(s): I10 - Essential (primary) hypertension (4) Idiopathic normal pressure hydrocephalus Code(s): G91.2 - (IDIOPATHIC) NORMAL PRESSURE HYDROCEPHALUS (5) Abrasion of lower extremity Qualifiers: Encounter type: initial encounter Laterality: unspecified laterality Qualified Code(s): S80.819A - Abrasion, unspecified lower leg, initial encounter (6) Lipidemia Code(s): E78.5 - HYPERLIPIDEMIA, UNSPECIFIED Qualifiers: Hyperlipidemia type: unspecified Qualified Code(s): E78.5 - Hyperlipidemia, unspecified (7) H/O: CVA (cerebrovascular accident) Code(s): Z86.73 - PRSNL HX OF TIA (TIA), AND CEREB INFRC W/O RESID DEFICITS (8) Gait disturbance Code(s): R26.9 - UNSPECIFIED ABNORMALITIES OF GAIT AND MOBILITY (9) Dementia Code(s): F03.90 - UNSPECIFIED DEMENTIA WITHOUT BEHAVIORAL DISTURBANCE Qualifiers: Dementia type: unspecified type Dementia behavioral disturbance: without behavioral disturbance Qualified Code(s): F03.90 - Unspecified dementia without behavioral disturbance (10) History of fall Code(s): Z91.81 - HISTORY OF FALLING (11) Leukocytosis Code(s): D72.829 - ELEVATED WHITE BLOOD CELL COUNT, UNSPECIFIED Qualifiers: Leukocytosis type: unspecified Qualified Code(s): D72.829 - Elevated white blood cell count, unspecified
[2017-03-11] MEDS: LEVOFLOXACIN 250 MG TABLET (FP) PO SCH (08:03)
[2017-03-11] MEDS: CARBIDOPA/LEVODOPA 25/100 TABLET (FP) PO SCH ×3 (08:03→21:35)
[2017-03-11] MEDS: LOSARTAN POTASSIUM 25 MG TABLET PO SCH (10:37)
[2017-03-11] MEDS: ESCITALOPRAM OXALATE 10 MG TABLET (FP) PO SCH (10:37)
[2017-03-11] MEDS: HEPARIN NA (PORCINE) 5,000 UNITS/ML 1ML VIAL SQ SCH ×2 (10:37→21:34)
[2017-03-11] MEDS: ASPIRIN COATED 81 MG TABLET.EC PO SCH (10:37)
[2017-03-11] MEDS: RANITIDINE HCL 150 MG TABLET (FP) PO SCH ×2 (10:37→21:35)
[2017-03-11] MEDS: MUPIROCIN 2% TOPICAL OINTMENT 22 GM TUBE TP SCH (10:38)
--- NOTE | 2017-03-11 12:35 | DS ---
Physical Examination Vital Signs: Vital Signs Temperature 97.7 F 03/11/17 06:00 Pulse Rate 74 03/11/17 06:00 Respiratory Rate 18 03/11/17 06:00 Blood Pressure 136/73 03/11/17 06:00 O2 Sat by Pulse Oximetry (%) 93 L 03/10/17 21:00 Findings/Remarks: head--NC eyes--eomi heart--RR lungs--clear but distant abd--soft ext--no appreciable edema skin--dry eschars on both anterior legs neuro--awake, alert; good eye contact; cognition globally impoverished; follows commands Labs: CBC, BMP 03/07/17 06:30 03/10/17 07:10 Discharge Summary Reason For Visit: TRAUMATIC INJURY,DEMENTIA,FALL Current Active Problems Abrasion of lower extremity Dementia Gait disturbance (Acute) History of fall Idiopathic normal pressure hydrocephalus Leukocytosis Lipidemia Syncope and collapse (Acute) Trauma (Acute) UTI (urinary tract infection) (Acute) hypertension Hospital Course: admitted following what was described as a syncopal episode after coming out of on the same day she was released from the SNF ([facility]), where she was in for "rehab" for 6-8 weeks prior. 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 She had little or any complaint upon admission and did not actually recall event/Sx leading to her collapse. While in-patient she was found to have a UTI which was Tx with Levaquin ( sensitive orgs); Her BP was on the low end and BP meds were adjusted, to stablize the BP. Her VS remained WNL, and the plan was for SNF d/c Condition: Improved - Instructions Referrals: Bola Chadwick MD [Primary Care Provider] - Disposition: INTERMEDIATE FACILITY - Home Medications Comprehensive Discharge Medication List: Ambulatory Orders Lovastatin 10 mg PO DAILY 10/26/15 Cholecalciferol (Vitamin D3) [D3-2000] 2,000 unit PO DAILY 11/07/15 Calcium (Oyster Shell) [Os-Dieter 500MG -] 500 mg PO DAILY #30 tablet 01/02/16 Aspirin Coated [Ecotrin -] 81 mg PO DAILY 12/23/16 Carbidopa/Levodopa 25/100 [Sinemet 25/100 -] 1 each PO TID 03/05/17 Escitalopram Oxalate [Lexapro -] 10 mg PO DAILY tablet 03/11/17 Levofloxacin [Levaquin -] 250 mg PO DAILY #7 tablet 03/11/17..................x 7 days Losartan Potassium [Cozaar -] 25 mg PO DAILY tablet 03/11/17 Mupirocin Ointment [Bactroban 2% Ointment -] 1 applic TP DAILY applic 03/11/17
--- NOTE | 2017-03-11 12:41 | DS ---
Physical Examination Vital Signs: Vital Signs Temperature 97.7 F 03/11/17 06:00 Pulse Rate 74 03/11/17 06:00 Respiratory Rate 18 03/11/17 06:00 Blood Pressure 136/73 03/11/17 06:00 O2 Sat by Pulse Oximetry (%) 93 L 03/10/17 21:00 Labs: CBC, BMP 03/07/17 06:30 03/10/17 07:10 Discharge Summary Reason For Visit: TRAUMATIC INJURY,DEMENTIA,FALL Current Active Problems Abrasion of lower extremity (Acute) Dementia (Acute) Gait disturbance (Acute) History of fall (Acute) Idiopathic normal pressure hydrocephalus (Acute) Leukocytosis (Acute) Lipidemia (Acute) Syncope and collapse (Acute) TIA (transient ischemic attack) (Acute) Trauma (Acute) UTI (urinary tract infection) (Acute) Condition: Improved - Instructions Diet, Activity, Other Instructions: low salt diet Topical treatments to both leg abrasions Levaquin x 7 days Physical therapy eval Check BP while standing; stop Losartan if too low Referrals: Bola Chadwick MD [Primary Care Provider] - Disposition: [facility] - Home Medications Comprehensive Discharge Medication List: Ambulatory Orders Lovastatin 10 mg PO DAILY 10/26/15 Cholecalciferol (Vitamin D3) [D3-2000] 2,000 unit PO DAILY 11/07/15 Calcium (Oyster Shell) [Os-Dieter 500MG -] 500 mg PO DAILY #30 tablet 01/02/16 Aspirin Coated [Ecotrin -] 81 mg PO DAILY 12/23/16 Carbidopa/Levodopa 25/100 [Sinemet 25/100 -] 1 each PO TID 03/05/17 Escitalopram Oxalate [Lexapro -] 10 mg PO DAILY tablet 03/11/17 Levofloxacin [Levaquin -] 250 mg PO DAILY #7 tablet 03/11/17 Losartan Potassium [Cozaar -] 25 mg PO DAILY tablet 03/11/17 Mupirocin Ointment [Bactroban 2% Ointment -] 1 applic TP DAILY applic 03/11/17
[2017-03-12 06:00] VITALS: TEMP 98.6
[2017-03-12] MEDS: LEVOFLOXACIN 250 MG TABLET (FP) PO SCH (06:44)
[2017-03-12] MEDS: CARBIDOPA/LEVODOPA 25/100 TABLET (FP) PO SCH (06:45)
[2017-03-12] MEDS: ASPIRIN COATED 81 MG TABLET.EC PO SCH (10:59)
[2017-03-12] MEDS: ESCITALOPRAM OXALATE 10 MG TABLET (FP) PO SCH (10:59)
[2017-03-12] MEDS: RANITIDINE HCL 150 MG TABLET (FP) PO SCH (10:59)
[2017-03-12] MEDS: HEPARIN NA (PORCINE) 5,000 UNITS/ML 1ML VIAL SQ SCH (10:59)
[2017-03-12] MEDS: LOSARTAN POTASSIUM 25 MG TABLET PO SCH (10:59)
[2017-03-12] MEDS: MUPIROCIN 2% TOPICAL OINTMENT 22 GM TUBE TP SCH (11:00)
[2017-03-12 11:56] VITALS: BP 132/80; PULSE 76
== END 2017-03-12 12:30 | DRG 690 ==
LOC: JER 15:17 → JERBED 20:03 → J5S 23:34
PROVIDERS: ADMIT Internal Medicine; ATTEND Internal Medicine
DX: N39.0 Urinary tract infection, site not specified (principal); F03.90 Unspecified dementia, unspecified severity, without behavioral disturbance, psychotic disturbance, mood disturbance, and anxiety; R26.89 Other abnormalities of gait and mobility; R55 Syncope and collapse; I12.9 Hypertensive chronic kidney disease with stage 1 through stage 4 chronic kidney disease, or unspecified chronic kidney disease; N18.9 Chronic kidney disease, unspecified; E78.5 Hyperlipidemia, unspecified; D72.829 Elevated white blood cell count, unspecified; K21.9 Gastro-esophageal reflux disease without esophagitis; Z86.73 Personal history of transient ischemic attack (TIA), and cerebral infarction without residual deficits; G20 Parkinson's disease
CPT/HCPCS: 36415; 70450-TC; 71010-TC; 80048; 80053; 81003; 81015; 82533; 82550; 82607; 84443; 84484; 85025; 85027; 85610; 86850; 86900; 86901; 87086; 87186; 93005; 93010; 93306-TC; 93880-TC; 97116-GP; 99285-25; J0833; J1644